=== PATIENT | male | born 1945 | race Caucasian/White ===

== ENCOUNTER 2017-11-05 16:05 | Emergency (ER) | payer MEDICARE, OTHER ==
[~2017-11-05] VITALS: Ht 170.2 cm; Wt 94.0 kg
[2017-11-05] MEDS ORDERED: SERTRALINE (18:44)
[2017-11-05] MEDS ORDERED: ATORVASTATIN (18:44)
[2017-11-05] MEDS ORDERED: NORVASC (18:44)
[2017-11-05] MEDS ORDERED: HYDR-3307 PO (18:46)
[2017-11-05 18:50] VITALS: BP 135/73
[2017-11-05] MEDS ORDERED: METHOCARBAMOL 750 MG TABLET PO ONE (19:30)
[2017-11-05] MEDS ORDERED: METHOCARBAMOL 750 MG TABLET ONE (19:44)
== END 2017-11-05 20:36 | disposition home or self-care (01) ==
LOC: ED 18:22
DX: S76.012A Strain of muscle, fascia and tendon of left hip, initial encounter (principal); M41.9 Scoliosis, unspecified; X58.XXXA Exposure to other specified factors, initial encounter; Y93.89 Activity, other specified; Y92.89 Other specified places as the place of occurrence of the external cause; Y99.8 Other external cause status
CPT/HCPCS: 72110; 99284